=== PATIENT | male | born 1990 ===

== ENCOUNTER 2017-08-05 09:16 | Emergency (ER) | payer OTHER ==
[2017-08-05 10:23] VITALS: RESP 18; TEMP 97; O2SAT 99
[2017-08-05] MEDS ORDERED: Sodium Chloride 0.9% 1,000 ML IV STA (10:40)
--- NOTE | 2017-08-05 10:44 | ED PDOC ---
HPI: Chest Pain Time Seen by Provider: 08/05/17 09:51 Chief Complaint (Nursing): Dizziness/Lightheaded Additional Complaint(s): 26yo M with no PMHx c/o dizziness and chest pain last night. chest pain x3 episodes last night, lasting 1-5 minutes, sharp, no radiatio, a/w dizziness. Continues to have dizziness currently, but improved. Chest pain has since resolved. Denies PMHx/FHx cardiac disease. Denies fever, chills, n/v, SOB, abd pain, diarrhea, hematuria, dysuria, urinary frequency. Denies recent illness or sick contacts. Nonsmoker. PCP private Past Medical History Reviewed: Historical Data, Nursing Documentation, Vital Signs Vital Signs: Last Vital Signs Temp 97 F L 08/05/17 10:15 Pulse 62 08/05/17 10:15 Resp 18 08/05/17 10:15 BP 101/53 L 08/05/17 10:15 Pulse Ox 99 08/05/17 12:09 - Medical History PMH: No Chronic Diseases - Surgical History Surgical History: No Surg Hx - Family History Family History: States: No Known Family Hx - Social History Current smoker - smoking cessation education provided: No - Immunization History Hx Tetanus Toxoid Vaccination: No Hx Influenza Vaccination: No Hx Pneumococcal Vaccination: No - Home Medications Home Medications: Ambulatory Orders Medication Instructions Recorded Aluminum Hydroxide/Magnesium H 30 ml PO Q8 #1 bottle 06/19/16 [Maalox 30 ml] Famotidine [Pepcid] 20 mg PO DAILY #30 tab 06/19/16 Meclizine [Antivert] 12.5 mg PO Q6H PRN #5 tab 08/05/17 - Allergies Allergies/Adverse Reactions: Allergies Allergy/AdvReac Type Severity Reaction Status Date / Time No Known Allergies Allergy Verified 08/05/17 10:15 Review of Systems ROS Statement: Except As Marked, All Systems Reviewed And Found Negative Cardiovascular: Positive for: Chest Pain, Light Headedness Physical Exam - Reviewed Nursing Documentation Reviewed: Yes Vital Signs Reviewed: Yes - Physical Exam Appears: Positive for: Well, Non-toxic Head Exam: Positive for: ATRAUMATIC, NORMAL INSPECTION Skin: Positive for: Warm, Dry Eye Exam: Positive for: EOMI, PERRL ENT: Negative for: Pharyngeal Erythema, Tonsillar Exudate Neck: Positive for: Normal, Painless ROM, Supple Cardiovascular/Chest: Positive for: Regular Rate, Rhythm, Chest Non Tender Respiratory: Positive for: Normal Breath Sounds. Negative for: Decreased Breath Sounds Gastrointestinal/Abdominal: Positive for: Soft. 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 Negative for: Motor/Sensory Deficits, Facial Droop - Laboratory Results Result Diagrams: 08/05/17 11:05 08/05/17 11:05 - ECG O2 Sat by Pulse Oximetry: 99 Medical Decision Making Medical Decision Makin DDx ACS, vertigo, BPPV, orthostatic hypotension CBC, CMP, troponin accucheck 84 IVF bolus NS 1L x1 EKG NSR reassessment 1209 feeling better CBC, CMP, trop neg d/c home with meclizine Disposition - Clinical Impression Clinical Impression: Dizziness - Disposition Referrals: Kaia Young MD [Family Provider] - Disposition Time: 13:03 Condition: STABLE Prescriptions: Meclizine [Antivert] 12.5 mg PO Q6H PRN #5 tab PRN Reason: Dizziness Forms: [facility] (French)
[2017-08-05 11:21] LABS: ALB/GLOB RATIO 1.2 (1.0-2.1); ALBUMIN 4.1 g/dL (3.5-5.0); ALT/SGPT 76 U/L (21-72); AST/SGOT 32 U/L (17-59); BLOOD UREA NITROGEN 10 mg/dl (9-20); CALCIUM 9.4 mg/dL (8.4-10.2); GFR AFRICAN-AMERICAN > 60; GFR NON-AFRICAN AMERICAN > 60
[2017-08-05 12:23] LABS: BASO % 0.5 % (0.0-2.0); EOS # 0.1 K/uL (0.0-0.7); EOS % 2.1 % (0.0-4.0); HEMOGLOBIN 15.7 g/dL (12.0-18.0); LYMPH # 2.6 K/uL (1.0-4.3); LYMPH % 37.5 % (20.0-40.0); MEAN CELL VOLUME 84.6 fl (80.0-94.0); MEAN CORPUSCULAR HEMOGLOBIN 28.9 pg (27.0-31.0); MEAN CORPUSCULAR HGB CONC 34.2 g/dL (33.0-37.0); MONO # 0.6 K/uL (0.0-0.8); MONO % 9.5 % (0.0-10.0); NEUT # 3.4 K/uL (1.8-7.0); NEUT % 50.4 % (50.0-75.0); NRBC % 0.2 % (0.0-0.0); RBC 5.43 Mil/uL (4.40-5.90); RED CELL DISTRIBUTION WIDTH 12.7 % (11.5-14.5); WHITE BLOOD COUNT 6.8 K/uL (4.8-10.8)
[2017-08-05 13:25] VITALS: BP 110/66; PULSE 88
== END 2017-08-05 13:20 | disposition home or self-care (01) ==
LOC: H.ER 09:16
DX: R42 Dizziness and giddiness (principal)
CPT/HCPCS: 80053; 82948; 84484; 85025; 99285; J7040